=== PATIENT | female | born 1950 | race Two or more races ===

== ENCOUNTER → 2020-06-16 08:00 | Outpatient (CLI) | payer OTHER ==
[~2020-06-16 08:00] MED LIST: ATORVASTATIN CA80 MG PO; BRIMONIDINE TART5 M1 OP; CHILDREN'S ASPI81 MG PO; COZAAR25 MG PO; LATANOPROST 0.7.5 ML OP; METFORMIN HCL500 M3 PO; TIMOPTIC5 ML OP
== END | disposition home or self-care (01) ==
LOC: LAB 08:00 → EDSTATUS 09:38 → CIR.AMB 06-17 10:17 → EDSTATUS 06-21 07:00 → CIR.AMB 06-21 10:17
PROVIDERS: ATTEND Obstetrics & Gynecology Gynecology
DX: Z20.828 Contact with and (suspected) exposure to other viral communicable diseases (principal)